=== PATIENT | female | born 1950 | race Caucasian/White ===

== ENCOUNTER 2020-10-01 22:21 | Emergency (ER) | payer OTHER, SELFPAY ==
--- NOTE | ~2020-10-01 | XR_ITS ---
XR humerus RT DATE: 10/01/2020 22:41 INDICATION: Fall. Right arm injury. TECHNIQUE: 3 views COMPARISON: None FINDINGS: There is a comminuted fractures of the proximal right humerus including transverse medially displaced surgical neck fracture. Alignment is preserved at the right acromioclavicular and elbow joints. IMPRESSION: Comminuted fracture of proximal right humerus including transverse medially displaced héctor gical neck fracture Reviewed, dictated and finalized at location A. OSIVE TECHNICIAN IMPRESSION: Comminuted fracture of proximal right humerus including transverse medially displaced surgical neck fracture
[2020-10-01 22:24] VITALS: BP 119/64; PULSE 82; RESP 18; O2SAT 96
[2020-10-01] MEDS: ONDANSETRON HCL ODT 4 MG TABLET PO (22:45)
[2020-10-01] MEDS: MORPHINE SULFATE INJ (*CRX) 10 MG/ML AMP 4 MG IM (22:45)
--- NOTE | 2020-10-01 23:05 | ED.UPPEXIN ---
HPI - Extremity Injury (Upper) General Chief Complaint: Extremity Injury, Upper Stated Complaint: Fall Time Seen by Provider: 10/01/20 22:27 Source: patient and family Mode of arrival: ambulatory Limitations: no limitations History of Present Illness HPI narrative: Patient was going to her mailbox somehow tripped and fell. Complaining of right arm pain. Patient denies other injuries. Patient denies any fever, chills, nausea, vomiting, sore throat,, chest pain or shortness of breath. Patient also denies any exposure to anybody with COVID-19. complaint: injury to: right Related Data Home Medications Medication Instructions Recorded Confirmed folic acid 1 mg tablet 1 mg PO DAILY 09/21/19 10/06/19 Allergies Allergy/AdvReac Type Severity Reaction Status Date / Time lisinopril Allergy Unknown Unknown Verified 10/06/19 11:36 Review of Systems Review of Systems: Narrative: CONSTITUTIONAL: Denies fever, chills, or sweats. EYES: Denies visual changes, redness, or discharge. ENT: Denies rhinorrhea, congestion, sore throat, or otalgia. CARDIOVASCULAR: Denies chest pain, palpitations, or edema. RESPIRATORY: Denies cough or dyspnea. GASTROINTESTINAL: Denies abdominal pain, nausea, vomiting, or diarrhea. GENITOURINARY: Denies dysuria or hematuria. SKIN: Denies rash or itching. MUSCULOSKELETAL: Right arm pain NEUROLOGIC: Denies headache, numbness, or weakness. PSYCHIATRIC: Denies anxiety or depression. [facility] Family History Family History Sibling Hypertension Patient's brother is in good health Family history of chronic obstructive pulmonary disease Father Family history of congenital heart disease Family history of elevated blood lipids Family history of arthritis Family history of congestive heart failure Patient's father is Mother Cerebrovascular accident Family history of arthritis Patient's mother is Social History Social History Smoking status: Current every day smoker Alcohol intake: current Exam Narrative: Exam Narrative: General appearance: Well-developed, well-nourished Skin: Normal color Head: Normocephalic, nontraumatic Eyes: Clear conjunctiva ENT: Oropharynx normal, ears normal, nose normal Neck: Supple, nontender Chest and respiratory: Airway patent, no respiratory distress, no accessory muscle use Heart: Regular rate/rhythm Abdomen: Soft, nontender, no organomegaly, quiet bowel sounds Vascular: Normal peripheral pulses, normal capillary refill. Musculoskeletal: Severe limited range of motion of the right shoulder, deformity, diffuse pain. Right radial pulse is intact. 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, no gross motor deficit Course Course Emergency Course: Stable Consultations Consultation #1: DR ARREGUIN Send patient to [facility] Date: 10/01/20 Time: 23:52 Consultation #2: DR ALONSO / orthopedic at [facility]/accepted transfer to the ED Date: 10/01/20 Time: 23:53 Vital Signs Vital signs: Vital Signs Pulse Rate 82 10/01/20 22:24 Respiratory Rate 18 10/01/20 22:24 Blood Pressure 119/64 10/01/20 22:24 Pulse Oximetry 96 10/01/20 22:24 Pulse Rate 82 10/01/20 22:24 Respiratory Rate 18 10/01/20 22:24 Blood Pressure 119/64 10/01/20 22:24 Pulse Oximetry 96 10/01/20 22:24 MDM - Extremity Injury (Upper) MDM Narrative Medical decision making narrative: Right shoulder pain. X-ray ordered. Right humeral neck fracture with 100% displacement Differential Diagnosis Differential diagnosis: Likely f
[2020-10-02 00:15] VITALS: BP 108/64; PULSE 83; RESP 15; O2SAT 94
--- NOTE | 2020-10-02 00:53 | PC.NURSE ---
Addendum entered by Mallorie Mercado 10/02/20 03:20: Called [facility] for status...ETA 04:15 Original Note: Called [facility] to transport patient to [facility]...ETA [id number]
[2020-10-02] MEDS: MORPHINE SULFATE (*CRX) 4 MG/ML INJ IV PUSH (02:43)
[2020-10-02 02:48] VITALS: BP 116/58; PULSE 86; RESP 14; TEMP 36.7; O2SAT 96
[2020-10-02 03:13] VITALS: TEMP 36.6
[2020-10-02 04:01] VITALS: BP 109/58; PULSE 75; RESP 18; TEMP 36.6; O2SAT 96
== END 2020-10-02 04:07 | disposition short-term general hospital (02) ==
PROVIDERS: Emergency Provider Emergency Medicine; PCP Internal Medicine
DX: S42.211A Unspecified displaced fracture of surgical neck of right humerus, initial encounter for closed fracture (principal); F17.200 Nicotine dependence, unspecified, uncomplicated; W01.0XXA Fall on same level from slipping, tripping and stumbling without subsequent striking against object, initial encounter
CPT/HCPCS: 73060; 96374; 96375; 96376; 99285; A9270; J2270

== ENCOUNTER → 2021-03-09 12:06 | Outpatient (CLI) | payer OTHER, SELFPAY ==
--- NOTE | ~2021-03-09 | DEXA_ITS ---
Bone Density Report Name: Robyn Carranza Age: 70 Sex: Female Ethnicity: White Date of : 1950 Indication: postmenopausal; screening for osteoporosis; prior fracture; Referring Provider: Marin Joseph Study: Bone densitometry was performed. Exam Date: March 09, 2021 Accession number: [id number] Bone Density: Region BMD T-score Z-score Classification AP Spine (L1-L4) 0.854 -1.8 0.5 Osteopenia Femoral Neck (Left) 0.629 -2.0 0.0 Osteopenia Total Hip (Left) 0.733 -1.7 -0.1 Osteopenia Femoral Neck (Right) 0.586 -2.4 -0.4 Osteopenia Total Hip (Right) 0.715 -1.9 -0.2 Osteopenia Total Hip Mean 0.724 -1.8 -0.2 Osteopenia World Health Organization criteria for BMD impression classify patients as: Normal (T-score at or above -1.0), Osteopenia (T-score between -1.0 and -2.5), or Osteoporosis (T-score at or below -2.5). 10-year Fracture Risk(1): Major Osteoporotic Fracture 21% Hip Fracture 5.5% Reported Risk Factors: [place] (), Neck BMD=0.586, BMI=23.2, previous fracture (1) FRAX(R) Version 3.08. Fracture probability calculated for an untreated patient. Fracture probability may be lower if the patient has received treatment. Clinical Information Provided by Patient: Has had a low trauma fracture Has used the following medications: Vitamin D, Calcium, MTV Patient maximum height was 62.0 Menopause Age: 56 Onset of menses at age 10 Number of children 0 Impression: The patient has low bone mass, based on the Right Femoral Neck T-score. The patient has an estimated ten-year risk of hip fracture of 5.5% and an estimated ten-year risk of major fracture of 21%, based on the WHO FRAX algorithm. The patient has risk factors, including: previous fracture. Discussion: BONE DENSITY IS LOW AT ONE OR MORE SKELETAL SITES. THE PATIENT'S BMD AND CLINICAL RISK FACTORS CONTRIBUTE TO THIS PATIENT'S HIGH RISK OF FRACTURE. This patient's lowest T-score is low at one or more skeletal sites. It meets the World Health Organization's (WHO) criteria for ?low bone mass? (T-score between -1.0 and -2.5). The patient's 10-year risk of hip fracture and 10 year risk of a major osteoporotic fracture as calculated by FRAX exceeds the threshold where pharmacological therapy is recommended by the National Osteoporosis Foundation (NOF). However, all treatment decisions require clinical judgment and consideration of individual patient factors, including patient preferences, comorbidities, previous drug use, risk factors not captured in the FRAX model (e.g., frailty, falls, vitamin D deficiency, increased bone turnover, interval significant decline in bone density) and possible under or overestimation of fracture risk by FRAX. The patient should follow a healthful lifestyle (good nutrition with adequate calcium and vitamin D, and approp
== END ==
PROVIDERS: PCP Internal Medicine; Visit Provider Internal Medicine
DX: Z78.0 Asymptomatic menopausal state (principal); M85.89 Other specified disorders of bone density and structure, multiple sites
CPT/HCPCS: 77080

== ENCOUNTER 2021-03-21 13:00 | Outpatient (RCR) | payer OTHER, SELFPAY ==
--- NOTE | 2020-12-23 11:52 | OTOPEVAL ---
OCCUPATIONAL THERAPY EVALUATION REPORT 12/23/20 Thank you for referring Robyn Carranza to [facility].? The patient is scheduled to be seen for occupational therapy? 2x/week for 4 weeks. Please review, sign, date and return this plan of care RADHA. I agree with and certify that the following plan of care is medically necessary. Referring Physician Date Referring Provider: Augustus Thomas MD *OT Outpatient Evaluation Therapy Assessment Status Assessment Status Assessment Status Evaluation Outpatient Past Medical History Past Medical History Source of Past Medical History Patient Neurological History Hx Neurological Disorders No Significant History Cardiovascular History Hx Hypercholesterolemia Yes Hx Hypertension Yes Respiratory History Hx Respiratory Disorders No Significant History Gastrointestinal History Hx Gastrointestinal Disorders No Significant History Genitourinary History Hx Genitourinary Disorders No Significant History Musculoskeletal History Hx Fractures Yes: Right shoulder, reverse total shoulder arthroplasty Hematological History Hx Hematological Disorders No Significant History Endocrine History Hx Endocrine Disorders No Significant History HEENT History Hx HEENT Disorders No Significant History Integumentary History Hx Skin Disorders No Significant History Reproductive History Hx Reproductive Disorders No Significant History Psychosocial History Hx Psychiatric Disorders No Significant History Evaluation Information Problem Diagnosis Right humeral fx s/p reverse shoulder arthroscopy, radial nerve injury Cause Fall Additional Evaluation Detail Reverse total shoulder arthroscopy 10/08/2020 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 She has been working with home health OT for UE exercises. She is independent with these and very compliant. Prior Level of Function Activity Level (Last 3 Months) Occupation Retired Hand Dominance Right Activity of Daily Living Ability Independent Indoor/Home Mobility Independent Community Mobility Independent Stairs Ability Independent Cooking Yes Cleaning Yes Laundry Yes Shopping Yes Driving
[2021-01-18 12:33] VITALS: BP_SYST 100
--- NOTE | 2021-01-18 16:24 | OTOPEVAL ---
OCCUPATIONAL THERAPY RE-EVALUATION REPORT Thank you for referring Robyn Carranza to [facility].?As described below, Robyn is making progress with functional ROM and functional use of the (R) UE. The patient is scheduled to be seen for continued occupational therapy? 2x/week for 4 weeks. Please review, sign, date and return this plan of care RADHA. I agree with and certify that the following plan of care is medically necessary. 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 She is compliant with all home exercises. Subjective Information Patient reports improved ROM Query Text:As Reported By Patient/ at the shoulder, improved Family strength in the elbow and forearm, and reduced swelling in the hand. She states this has allowed her to be able to use both hands to pull on socks and pants, clasp her bra , pinch and open bags, and she can now hold her toothbrush in the right hand. She states she is still unable to use the hand to wash her hair, turn the ignition in her car, or lift anything heavier than a can of soup (~1 lb). Pain Assessment Timing of Pain Assessment Timing of Pain Assessment Re-assessment Pain Scale Pain Scale Used Numeric (1 - 10) Self Report Pain Assessment Right Upper Arm(s) Reported Pain Level 3 Pain Description Aching,Soreness Other Pain Description sensitive Lowest Pain Intensity 2 Greatest Pain Intensity 4 Pain Aggravating Factors Exercise/Activity Pain Score Pain Score 3: Self Report Interventions Used Interventions Used By Clinicians Rest Upper Extremity Range of Motion Scapular/ Shoulder Range of Motion Right Shoulder Flexion - Active 84 Shoulder Flexion - Passive 110 Shoulder Extens
[2021-02-16 13:06] VITALS: BP_SYST 105
--- NOTE | 2021-02-16 15:05 | OTOPEVAL ---
OCCUPATIONAL THERAPY RE-EVALUATION REPORT 02/16/21 Robyn continues to make excellent progress with shoulder and elbow ROM and strength. This has facilitated a huge change in functional use of the right UE for ADL tasks such as bathing, dressing, laundry, and driving. She continues to be limited with fine motor tasks distally due to the radial nerve palsy, which continues to remain unchanged with radial innervated musculature distal to the supinator. Continued skilled OT indicated for progression of shoulder strengthening for the periscapular and deltoid and to continue to monitor distal radial nerve function/return. Thank you for referring Robyn Carranza to [facility].? The patient is scheduled to be seen for continued occupational therapy? 2x/week for 4 weeks. Please review, sign, date and return this plan of care RADHA. I agree with and certify that the following plan of care is medically necessary. 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 Intact triceps and supination. Patient has radial nerve palsy splint that she wears during the day and a resting hand splint at night. She is compliant with all home exercises. Subjective Information Patient reports improved Query Text:As Reported By Patient/ function in the right UE. She Family states she has improved ROM in the shoulder, noting specifically improved elevation and rotation which has allowed her to use the right hand to help wash her hair in the shower (without extension assist brace donned) . She is also now driving and carrying a laundry basket. With the hand she is able to hold a tooth brush and fork, but primarily has use use her left UE to brush her teeth and eat. She progressed to being able to lift and carry objects >1
[2021-03-14 11:01] VITALS: BP_SYST 110
--- NOTE | 2021-03-14 11:58 | OTOPEVAL ---
OCCUPATIONAL THERAPY RE-EVALUATION REPORT 03/14/21 Patient presents today for 3rd OT re-evaluation since beginning OT 12/23/20. The shoulder has progressed to functional limits and she has a lot more flexibility and comfort with use and motion. Radial nerve musculature, such as the triceps and supinator are firing and continue to be weak. Distal to the supinator, the patient has no active radial innervated muscle contractions. She continues to wear a radial nerve palsy splint for all right hand use. Distally the fingers continue to have stiffness and weakness. Now that the shoulder is functional, plan to focus the next month of therapy distally on the forearm, wrist, and hand to improve functional room manager and fine motor. Thank you for referring Robyn Carranza to [facility].? The patient is scheduled to be seen for occupational therapy? 2x/week for 4 weeks. Please review, sign, date and return this plan of care RADHA. I agree with and certify that the following plan of care is medically necessary. 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 Intact triceps and supination. Patient has radial nerve palsy splint that she wears during the day and a resting hand splint at night. She is compliant with all home exercises. Subjective Information Patient reports improved Query Text:As Reported By Patient/ function in the right UE. She Family is now able to use the right hand to wash her hair, getting dressed in normal sized clothes, wearing t-shirts ( instead of all button downs), doing buttons, and now she is lifting heavier objects, such as a gallon of milk. She also notes increased ROM and coordination with the left
--- NOTE | 2021-03-23 08:34 | PCOTNOTE ---
This treatment is being continued on visit number [id number]. Please see documentation on both accounts to view progress. Completed interventions, outcomes, and problems have been marked as Inactive to facilitate the copying of the Care plan routine for recurring accounts.
== END 2021-03-23 07:20 | disposition home or self-care (01) ==
LOC: ANHOT 13:00
PROVIDERS: PCP Internal Medicine
DX: S42.291D Other displaced fracture of upper end of right humerus, subsequent encounter for fracture with routine healing (principal)
CPT/HCPCS: 97110; 97112; 97140; 97166; 97763

== ENCOUNTER 2021-04-13 12:30 | Outpatient (RCR) | payer OTHER, SELFPAY ==
[2021-03-23 07:20] VITALS: BP_SYST 110
--- NOTE | 2021-03-23 08:41 | PCOTNOTE ---
The treatment documented on this account is a continuation of the treatment documented on visit number [id number]. Please see documentation on both accounts to view progress. The Plan of Care has been transitioned and updated within the new V#. I have addressed and agree with the discipline specific Problems, Interventions, and Goals for the current certification period. Completed interventions, outcomes, and problems have been marked as Inactive to facilitate the copying of the Care plan routine for recurring accounts.
--- NOTE | 2021-04-13 13:22 | OTOPEVAL ---
OCCUPATIONAL THERAPY RE-EVALUATION AND DISCHARGE SUMMARY 04/13/21 Patient presents today for 4th OT re-evaluation since beginning OT on 12/23/20. This past 4 weeks of therapy has been focused on the distal UE: forearm, wrist, fingers, and thumb. At this time she is independent with ROM HEP and strengthening HEP of these joints. She no longer has recurrent edema in the fingers that restrict functional flexion. She unfortunately continues to have no radial nerve function distal to the elbow. No further skilled OT indicated at this time. D/C with patient indep. with HEP. Thank you for referring Robyn Carranza to [facility]. Please review, sign, date and return this D/C Note RADHA. I agree with and certify that the following plan of care is medically necessary. Referring Physician Date Referring Providers: MD Chiki Garrett MD *OT Outpatient Re-Evaluation Evaluation Information Problem Diagnosis Right humeral fx s/p reverse shoulder arthroscopy, radial nerve injury Cause Fall Additional Evaluation Detail Reverse total shoulder arthroscopy 10/08/2020. 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 Intact triceps and supination. Patient has radial nerve palsy splint that she wears during the day and a resting hand splint at night. She is compliant with all home exercises. Wrist and finger extensor muscles do not respond to NMES . Subjective Information Patient reports improved Query Text:As Reported By Patient/ dexterity in the right hand. Family All function is completed with a radial nerve palsy splint. She reports that she used her right hand to peel potatoes, cut meat, slice an avocado, and carrying object. She continues to be very compliant with her HEP 2x/day. She is using green resistance bands for the shoulder/elbow, blue putty for the hand, and 3# free weight for the elbow/ forearm. Pain Assessment Timing of Pain Assessment Timing of Pain Assessment Re-assessment Self Report Self Report Pain Level 0 Pain Score Pain Score
== END 2021-04-14 09:55 | disposition home or self-care (01) ==
LOC: ANHOT 12:30
PROVIDERS: PCP Internal Medicine
DX: S42.291D Other displaced fracture of upper end of right humerus, subsequent encounter for fracture with routine healing (principal)
CPT/HCPCS: 97110; 97112; 97140

== ENCOUNTER 2024-12-18 13:00 | Outpatient (CLI) | payer OTHER, SELFPAY ==
--- NOTE | ~2024-12-18 | DEXA_ITS ---
Bone Density Report Name: ELKE TEMPLE Age: 74 Sex: Female Ethnicity: White Date of : 1950 Indication: postmenopausal; screening for osteoporosis; prior fracture; Referring Provider: NILA SHELL Study: Bone densitometry was performed. Exam Date: December 18, 2024 Accession number: [id number] Bone Density: Region BMD T-score Z-score Classification AP Spine(L1-L4) 0.908 -1.3 1.2 Osteopenia Femoral Neck (Left) 0.672 -1.6 0.6 Osteopenia Total Hip (Left) 0.774 -1.4 0.5 Osteopenia Femoral Neck (Right) 0.565 -2.6 -0.4 Osteoporosis Total Hip (Right) 0.736 -1.7 0.2 Osteopenia Total Hip Mean 0.755 -1.6 0.4 Osteopenia World Health Organization criteria for BMD impression classify patients as: Normal (T-score at or above -1.0), Osteopenia (T-score between -1.0 and -2.5), or Osteoporosis (T-score at or below -2.5). 10-year Fracture Risk: FRAX not reported because: Some T-score for Spine Total or Hip Total or Femoral Neck at or below -2.5 Clinical Information Provided by Patient: Has had a low trauma fracture Has used the following medications: Vitamin D, Calcium Patient maximum height was 62.5 Menopause Age: 58 Drinks caffeinated beverages Onset of menses at age 10 Number of children 0 Impression: The patient has established osteoporosis, based on the Right Femoral Neck T-score and the existence of a prior fracture. The patient has risk factors, including: previous fracture. Discussion: HIGH RISK OF FRACTURE. BONE DENSITY IS UNDESIRABLY LOW AT ONE OR MORE SKELETAL SITES, CONSISTENT WITH POSTMENOPAUSAL OSTEOPOROSIS. This patient's lowest T-score, in a patient who has previously fractured, meets the World Health Organization's (WHO) criteria for severe osteoporosis. In untreated patients, the risk of osteoporotic fracture increases approximately two-fold for each 1.0 SD decrease in T-score. Low bone density is not the only risk factor for fracture; also consider factors such as patient's age, frailty or poor health, risk of falling, risk of injury, previous osteoporotic fracture, family history of osteoporosis, cigarette smoking, low body weight, etc. Not everyone with low bone mineral density has osteoporosis; osteomalacia and other metabolic bone disorders should also be considered. Patients who have osteoporosis should be evaluated for specific diseases and conditions (secondary causes) that may cause or contribute to bone loss. The [place] [employer] Clinical Endocrinologists (AACE) and National Osteoporosis Foundation (NOF) recommend pharmacologic intervention for all postmenopausal women whose T-score is in this range. The patient should follow a healthful lifestyle (good nutrition with adequate calcium and vitamin D, and appropriate weight-bearing exercise). Follow-Up: Consider a repeat BMD and Vertebral Fracture Assessment (VFA) exam in 2 years or sooner if medically necessary, to reassess this patient's status. Reported by: PAULETTE on 12/18/2024 1:35:00 PM. Reviewed, dictated and finalized at location A.
--- OUTSIDE RECORDS SUMMARY | 2024-12-18 13:10 | XMS_ITS | Clinical Summary ---
Author Organization [facility] Address [address] [place] [address] Care Team Providers Care Retort Operator Name Role Phone Marin Joseph DO Primary Care Provider [phone] Allergies Active Allergy Reactions Criticality Noted Date Comments Lisinopril Cough Low 10/02/2020 Medications folic acid (FOLVITE) 1 mg tabletIndicatio ns:Folate Deficiency Take 1 mg by mouth every morning Active simvastatin (ZOCOR) 40 mg tabletIndicatio ns:hyperlipidem ia Take 40 mg by mouth nightly Active irbesartan (AVAPRO) 150 mg tabletIndicatio ns:hypertension Take 150 mg by mouth every morning Active cholecalciferol , vitamin D3, (VITAMIN D3 ORAL)Indication s:supplement Take 2,000 Int'l Units by mouth every morning Active zinc 50 mg tabletIndicatio ns:supplement Take 1 tablet by mouth every morning Active multivitamin capsuleIndicati ons:Vitamin Deficiency Prevention Take 1 capsule by mouth every morning Active coenzyme Q10 100 mg capsuleIndicati ons:supplement Take 100 mg by mouth 2 (two) times a week Active ibuprofen (ADVIL,MOTRIN) 400 mg tablet Take 400 mg by mouth every 6 (six) hours as needed for pain Active oxyCODONE (ROXICODONE) 5 mg immediate release tabletIndicatio ns:Pain Take 1 tablet (5 mg total) by mouth every 6 (six) hours as needed for pain (2nd) 40 tablet 0 Active acetaminophen (TYLENOL) 325 mg tabletIndicatio ns:Pain Take 2 tablets (650 mg total) by mouth every 6 (six) hours as needed for pain 100 tablet 1 0 Active aspirin 325 mg enteric coated tabletIndicatio ns:Deep Vein Thrombosis Prevention Take 1 tablet (325 mg total) by mouth 2 (two) times a day for 14 days 28 tablet 0 Active docusate sodium (COLACE) 100 mg capsuleIndicati ons:constipatio n Take 1 capsule (100 mg total) by mouth 2 (two) times a day as needed for constipation 30 capsule 1 0 Active alendronate (FOSAMAX) 70 mg tablet TAKE 1 TABLET BY MOUTH ONCE A WEEK 1 Active Active Problems Problem Noted Date Diagnosed Date Hypertension 10/05/2020 Hyperlipidemia 10/05/2020 Closed fracture of right proximal humerus 2019 Overview (10/04/2020): Added automatically from request for surgery [id number] Immunizations Name Administration Dates Next Due [employer] (J&J) SARS-CoV-2 Vaccination 03/21/2021 Surgical History Surgery Date Site/Laterality Comments TONSILLECTOMY 11/04/1951 - 11/03/1952 SHOULDER SURGERY 10/08/2020 SHOULDER REPLACEMENT/MUIR Medical History Medical History Date Comments Hypertension High cholesterol Family History Medical History Relation Name Comments Seizures Brother Arthritis Father Cancer Father Heart disease Father Blood Clot Mother Relation Name Status Comments Brother Father Mother Social History Tobacco Use Types Packs/Day Years Used Date Smoking Tobacco: Former Cigarettes Q uit: 2004 Smokeless Tobacco: Never Alcohol Use Standard Drinks/Week Comments Yes 5 (1 standard drink = 0.6 oz pur e alcohol) SOCIAL Comments No Sex and Gender Information Value Date Recorded Sex Assigned at Not on file Legal Sex Female 12:01 AM HOT DIP PLATER Gender Identity Not on file Sexual Orientation Not on file Obstetrics History Last Filed Vital Signs Vital Sign Reading Time Taken Comments Blood Pressure 123/56 10/09/2020 3:29 PM HOT DIP PLATER Pulse 99 10/09/2020 3:29 PM HOT DIP PLATER Temperature 36.9 C (98.4 F) 10/09/2020 10:50 AM HOT DIP PLATER Respiratory Rate 16 10/09/2020 10:50 AM HOT DIP PLATER Oxygen Saturation 100% 10/09/2020 3:29 PM HOT DIP PLATER Inhaled Oxygen Concentration - - Weight 64 kg (141 lb 1.5 oz) 10/08/2020 10:20 PM HOT DIP PLATER Height 157.5 cm (5' 2.01 ) 10/08/2020 10:[address] Body Mass Index 25.8 10/08/2020 10:20 PM HOT DIP PLATER Plan of Treatment Health Maintenance Due Date Last Done Comments Depression Screening 1950 Hepatitis C Screening 1950 Osteoporosis Screening-Bone Density Scan 1950 DTaP/Tdap/Td Vaccine (1 - Tdap) 1959 Hepatitis B Screening 1966 Zoster Vaccine (1 of 2) 1998 Pneumococcal vaccine 65+ (1 of 1 - PCV) 2013 Well Visit 65+ 2013 Fall Risk Assessment 10/09/2021 10/09/2020 Covid-19 Vaccine (2 - season) 2024 Influenza Vaccine (#1) 2024 Medical Devices Implanted Type Area Program Facilitator Device Identifier Shelf Expiration Date Model / Serial / Lot [employer] 6191-1-010 Simplex P Radiopaque Full Dose Cement Bone Sterile - [id number] Implanted:Qty: 2 on 10/08/2020 at [facility] Bone Cement Right: Shoulder [employer] 6191-1-010 / / [employer] [id number] Base Plate 26mm Tm Reverse 20m - [id number] Implanted:Qty: 1 on 10/08/2020 at [facility] Right: Shoulder [employer] [id number] 08/03/2029 [id number] / / [id number] [employer] .62728.042 Ncb Anatomical Shoulder 4.5mm 42mm Inverse Reverse Lock Self Tap - [id number] Implanted:Qty: 1 on 10/08/2020 at [facility] Right: Shoulder [employer] [id number] 11/03/2024.87071.042 / / [id number] [employer] [id number] Glenosphere Tm Reverse 36mm Centric - [id number] Implanted:Qty: 1 on 10/08/2020 at [facility] Right: Shoulder [employer] [id number] 09/03/2029 [id number] / / [id number] [employer] 01.32561.042 Ncb Anatomical Shoulder 4.5mm 42mm Inverse Reverse Lock Self Tap - [id number] Implanted:Qty: 1 on 10/08/2020 at [facility] Right: Shoulder [employer] [id number] 11/03/2024042 / / [id number] [employer] [id number] Latitude 8-15mm Restrictor Elbow Restrictor Cement - [id number] - [id number] Implanted:Qty: 1 on 10/08/2020 at [facility] Right: Shoulder [employer] [id number] 06/29/2025 [id number] / [id number] / [employer] [id number] 8mm 130mm Shoulder Stem Humeral Trabecular Metal Sterile Reverse - [id number] Implanted:Qty: 1 on 10/08/2020 at [facility] Right: Shoulder [employer] [id number] 08/20/2030 [id number] / / [id number] [employer] [id number] 36mm Reverse Humerus 7d +0mm Offset Standard Liner Shoulder - [id number] Implanted:Qty: 1 on 10/08/2020 at [facility] Right: Shoulder [employer] [id number] 06/26/2028 [id number] / / [id number] Explanted Type Area Program Facilitator Device Identifier Shelf Expiration Date Model / Serial / Lot [employer] [id number] [place] 3/32in 9in 2 Trocar Pin Fixation Nonsterile - [id number] Explanted:Qty: 1 on 10/08/2020 at [facility] Right: Shoulder [employer] [id number] S / / Insurance [facility] Advance Directives For more information, please contact: [phone] * Full Code (Latest Code Status on File) Date Activated Date Inactivated Comments 10/08/2020 10:16 PM 10/09/2020 9:31 PM Care Teams Retort Operator Relationship Specialty Start Date End Date Marin Joseph DO PCP - General 10/02/20
--- OUTSIDE RECORDS SUMMARY | 2024-12-18 13:10 | XMS_ITS | Referral Summary ---
Author Organization [facility] Address [address] [place] [address] Care Team Providers Care Coagulating Bath Mixer Name Role Phone Marin Joseph DO Primary Care Provider [phone] Allergies Active Allergy Reactions Criticality Noted Date [...] (10/04/2020): Added automatically from request for surgery [id number] Immunizations Name Administration Dates Next Due [employer] (J&J) SARS-CoV-2 Vaccination 03/21/2021 Social History Tobacco Use Types Packs/Day Years Used Date Smoking Tobacco: Former Cigarettes Q uit: 2005 Smokeless Tobacco: Never Alcohol Use Standard Drinks/Week Comments Yes 5 (1 standard drink = 0.6 oz pur e alcohol) SOCIAL Comments No Sex and Gender Information Value Date Recorded Sex Assigned at Not on file Legal Sex Female 12:01 AM CAR SALES REPRESENTATIVE Gender Identity Not on file Sexual Orientation Not on file Last Filed Vital Signs Vital Sign Reading Time Taken Comments Blood Pressure 123/56 10/09/2020 3:29 PM CAR SALES REPRESENTATIVE Pulse 99 10/09/2020 3:29 PM CAR SALES REPRESENTATIVE Temperature 36.9 C (98.4 F) 10/09/2020 10:50 AM CAR SALES REPRESENTATIVE Respiratory Rate 16 10/09/2020 10:50 AM CAR SALES REPRESENTATIVE Oxygen Saturation 100% 10/09/2020 3:29 PM CAR SALES REPRESENTATIVE Inhaled Oxygen Concentration - - Weight 64 kg (141 lb 1.5 oz) 10/08/2020 10:20 PM CAR SALES REPRESENTATIVE Height 157.5 cm (5' 2.01 ) 10/08/2020 10:[address] Body Mass Index 25.8 10/08/2020 10:20 PM CAR SALES REPRESENTATIVE Plan of Treatment Not on file Medical Devices Implanted Type Area Ticket Dispenser Changer Device Identifier Shelf Expiration Date Model / Serial / Lot [employer] 6191-1-010 Simplex P Radiopaque Full Dose Cement Bone Sterile - [id number] Implanted:Qty: 2 on 10/08/2020 at [facility] Bone Cement Right: Shoulder [employer] 6191-1-010 / / [employer] [id number] Base Plate 26mm Tm Reverse 20m - [id number] Implanted:Qty: 1 on 10/08/2020 at [facility] Right: Shoulder [employer] [id number] 08/03/2029 [id number] / / [id number] [employer] 01.51603.042 Ncb Anatomical Shoulder 4.5mm 42mm Inverse Reverse Lock Self Tap - [id number] Implanted:Qty: 1 on 10/08/2020 at [facility] Right: Shoulder [employer] [id number] 11/03/2024.48600.042 / / [id number] [employer] [id number] Glenosphere Tm Reverse 36mm Centric - [id number] Implanted:Qty: 1 on 10/08/2020 at [facility] Right: Shoulder [employer] [id number] 09/03/2029 [id number] / / [id number] [employer] .79252.042 Ncb Anatomical Shoulder 4.5mm 42mm Inverse Reverse Lock Self Tap - [id number] Implanted:Qty: 1 on 10/08/2020 at [facility] Right: Shoulder [employer] [id number] 11/03/2024.52639.042 / / [id number] [employer] [id number] Latitude 8-15mm Restrictor Elbow Restrictor Cement - [id number] - [id number] Implanted:Qty: 1 on 10/08/2020 at [facility] Right: Shoulder [employer] [id number] 06/29/2025 [id number] / [id number] / [employer] [id number] 8mm 130mm Shoulder Stem Humeral Trabecular Metal Sterile Reverse - [id number] Implanted:Qty: 1 on 10/08/2020 at [facility] Right: Shoulder [employer] [id number] 08/20/2030 [id number] / / [id number] [employer] [id number] 36mm Reverse Humerus 7d +0mm Offset Standard Liner Shoulder - [id number] Implanted:Qty: 1 on 10/08/2020 at [facility] Right: Shoulder [employer] [id number] 06/26/2028 [id number] / / [id number] Explanted Type Area Ticket Dispenser Changer Device Identifier Shelf Expiration Date Model / Serial / Lot [employer] [id number] Steinmann 3/32in 9in 2 Trocar Pin Fixation Nonsterile - [id number] Explanted:Qty: 1 on 10/08/2020 at [facility] Right: Shoulder [employer] [id number] S / / Insurance [facility] Member Subscriber Plan / Payer (Ef fective 2019-Present) Name:Robyn Carranza Relation to Subscriber:Self Name:Robyn Carranza Payer ID:[id number] (NAIC) Type:MEDICARE RISK OTHER Address: [place] [id number] Advance Directives For more information, please contact: [phone] * Full Code (Latest Code Status on File) Date Activated Date Inactivated Comments 10/08/2020 10:16 PM 10/09/2020 9:31 PM Care Teams Coagulating Bath Mixer Relationship Specialty Start Date End Date Marin Joseph DO PCP - General 10/02/20
== END 2024-12-18 13:01 | disposition home or self-care (01) ==
LOC: ANHIMG 13:05
PROVIDERS: PCP Family Medicine; Visit Provider Family Medicine
DX: M81.0 Age-related osteoporosis without current pathological fracture (principal); M85.89 Other specified disorders of bone density and structure, multiple sites; Z78.0 Asymptomatic menopausal state; Z13.820 Encounter for screening for osteoporosis
CPT/HCPCS: 77080